=== PATIENT | female | born 1960 | race Caucasian/White ===

== ENCOUNTER 2021-11-08 15:31 | Emergency (ER) | payer BC ==
[~2021-11-08] VITALS: Ht 165.1 cm; Wt 63.5 kg
--- NOTE | 2021-11-08 15:44 | NUR ---
EKG done, [email or web address], medical screening exam in progress
[2021-11-08] MEDS ORDERED: ASPIRIN 325 MG TABLET ONE (15:49)
[2021-11-08] MEDS ORDERED: ASPIRIN 325 MG TABLET PO ONE (16:00)
[2021-11-08 16:03] LABS: HEMATOCRIT 38.9 % (31.2-41.9); MEAN CORPUSCULAR VOLUME 86.5 fL (75.5-95.3); PLATELET COUNT (AUTO) 270 K/uL (179-408)
[2021-11-08 16:08] LABS: CARBON DIOXIDE 26 mmol/L (21-32); CHLORIDE 104 mmol/L (98-107); CREATININE 0.7 mg/dL (0.6-1.3); GLUCOSE 107 mg/dL (74-106); POTASSIUM 3.6 mmol/L (3.5-5.1); UREA NITROGEN, BLOOD 14 mg/dL (7-18)
[2021-11-08 16:25] LABS: ALANINE AMINOTRANSFERASE 34 U/L (14-59); ALKALINE PHOSPHATASE 104 U/L (50-136); ASPARTATE AMINOTRANSFERASE 22 U/L (15-37); BILIRUBIN,DIRECT 0.1 mg/dL (0.0-0.2); BILIRUBIN,TOTAL 0.3 mg/dL (0.2-1.0); TOTAL PROTEIN, SERUM 7.3 g/dL (6.4-8.2)
[2021-11-08] MEDS ORDERED: ASPI-612 PO (18:29)
[2021-11-08 18:45] VITALS: BP 121/79
--- NOTE | 2021-11-08 18:54 | NUR ---
IV removed. Catheter intact and site benign. Pressure and 4x4 gauze applied to site. No bleeding noted. Patient discharged to home in stable condition with brisk steady gait. Written and verbal after care instructions given. Patient verbalized understanding and compliance of instructions. Stressed follow up with primary doctor and supervisor component assembler or return to ER for worsening s/s. Copies of all test results were given to patient.
== END 2021-11-08 18:54 | disposition home or self-care (01) ==
LOC: ER 15:31
DX: R07.89 Other chest pain (principal); R42 Dizziness and giddiness; Z88.2 Allergy status to sulfonamides
CPT/HCPCS: 36415; 71045; 84484; 85025; 93005; A4663